=== PATIENT | female | born 1950 | race Caucasian/White ===

== ENCOUNTER 2019-11-18 14:08 | Emergency (ER) | payer OTHER ==
[2019-11-18] MEDS ORDERED: NA CHLORIDE 0.9% 500 ML ONE (15:16)
[2019-11-18 15:33] LABS: Absolute Lymphocytes (CBC) 1.5 K/uL (0.7-4.9); Basophils % 0.5 % (0-1.3); Hematocrit 42.7 % (36.0-45.0); Lymphocytes % 19.2 % (15.3-44.8); MPV 9.9 fL (7.6-11.3); RBC Red Blood Cell Count 4.65 M/uL (3.86-4.86)
[2019-11-18] MEDS ORDERED: INSULIN -REGULAR HUMAN 50 UNIT/0.5 ML ML ONE (15:48)
[2019-11-18 15:50] LABS: Potassium 3.9 mmol/L (3.5-5.1)
[2019-11-18 16:20] LABS: Urine Blood 1+ (NEG); Urine Glucose 1+ (NEG); Urine Protein 3+ (NEG); Urine Specific Gravity 1.025 (1.005-1.030)
--- NOTE | 2019-11-18 16:49 | ER ---
Nurse's Notes [facility] Name: Jane Bush Age: 69 yrs Sex: Female : 1950 Arrival Date: 11/18/2019 Time: 14:09 Bed 7 Private MD: Diagnosis: Hyperglycemia, unspecified;Dehydration;Urinary tract infection, site not specified Presentation: 11/17 14:18 Chief complaint: Patient states: Blood sugar reads hi today. + nausea. Not taking ll1 medications as prescribed. Coronavirus screen: Client denies travel out of the [place] in the last 14 days. At this time, the client does not indicate any symptoms associated with coronavirus-19. Ebola Screen: Patient denies travel to an Ebola-affected area in the 21 days before illness onset. Initial Sepsis Screen: Does the patient meet any 2 criteria? No. Patient's initial sepsis screen is negative. Does the patient have a suspected source of infection? No. Patient's initial sepsis screen is negative. Risk Assessment: Do you want to hurt yourself or someone else? Patient reports no desire to harm self or others. Onset of symptoms was November 18, 2019. 14:18 Method Of Arrival: Ambulatory ll1 14:18 Acuity: BARRY 3 ll1 Historical: - Allergies: 14:21 Codeine; ll1 14:21 Erythromycin; ll1 - PMHx: 14:21 Hypertension; Diabetes - IDDM; ll1 - PSHx: 14:21 Hysterectomy; ll1 - Immunization history:: Flu vaccine is not up to date. - Social history:: Smoking status: Patient denies any tobacco usage or history of. Screenin:25 Abuse screen: Denies threats or abuse. Nutritional screening: No deficits noted. em Tuberculosis screening: No symptoms or risk factors identified. Fall Risk None identified. Assessment: 14:25 General: Appears in no apparent distress. obese, well groomed, Behavior is calm, tw2 cooperative, appropriate for age. Pain: Denies pain. Neuro: Level of Consciousness is awake, alert, obeys commands, Oriented to person, place, time, situation. Cardiovascular: Heart tones S1 S2 Patient's skin is warm and dry. Respiratory: Airway is patent Respiratory effort is even, unlabored, Respiratory pattern is regular, symmetrical, Breath sounds are clear bilaterally. GI: Abdomen is round non-distended, obese, Bowel sounds present X 4 quads. Reports nausea. : No signs and/or symptoms were reported regarding the genitourinary system. EENT: No signs and/or symptoms were reported regarding the EENT system. Derm: No signs and/or symptoms reported regarding the dermatologic system. Musculoskeletal: Range of motion: intact in all extremities. 15:21 Reassessment: Patient appears in no apparent distress at this time. No changes from tw2 previously documented assessment. Patient and/or family updated on plan of care and expected duration. Pain level reassessed. Patient is alert, oriented x 3, equal unlabored respirations, skin warm/dry/pink. 16:15 Reassessment: Patient appears in no apparent distress at this time. No changes from tw2 previously documented assessment. Patient and/or family updated on plan of care and expected duration. Pain level reassessed. Patient is alert, oriented x 3, equal unlabored respirations, skin warm/dry/pink. 17:04 Reassessment: Patient appears in no apparent distress at this time. No changes from tw2 previously documented assessment. Patient and/or family updated on plan of care and expected duration. Pain level reassessed. Patient is alert, oriented x 3, equal unlabored respirations, skin warm/dry/pink. Vital Signs: 14:18 BP 163 / 106; Pulse 79; Resp 18; Temp 97.8; Pulse Ox 100% ; Weight 113.4 kg; Height 5 ll1 ft. (152.40 cm); Pain 0/10; 15:20 BP 129 / 81; Pulse 80; Resp 17; Pulse Ox 100% on R/A; tw2 16:15 BP 131 / 76; Pulse 69; Resp 17; Pulse Ox 99% on R/A; tw2 17:04 BP 138 / 76; Pulse 67; Resp 17; Pulse Ox 100% on R/A; tw2 14:18 Body Mass Index 48.82 (113.40 kg, 152.40 cm) ll1 ED Course: 14:09 Patient arrived in ED. ds1 14:20 Triage completed. ll1 14:22 Arm band placed on Patient placed in an exam room, on a stretcher. ll1 14:23 Kleber Santa, RN is Primary Nurse. em 14:25 Patient has correct armband on for positive identification. Bed in low position. Call em light in reach. Pulse ox on. NIBP on. 14:39 Jani Rios PA is PHCP. [facility] 14:39 Etienne Mosley MD is Attending Physician. [facility] 15:15 Inserted saline lock: 20 gauge in left antecubital area, using aseptic technique. Blood tw2 collected. 17:03 No provider procedures requiring assistance completed. IV discontinued, intact, tw2 bleeding controlled, No redness/swelling at site. Pressure dressing applied. Administered Medications: 15:20 Drug: NS 0.9% 500 ml Route: IV; Rate: bolus; Site: left antecubital; tw2 16:14 Follow up: Response: No adverse reaction; IV Status: Completed infusion; IV Intake: tw2 500ml 15:39 Drug: Insulin Regular Human 5 units {Co-Signature: mena (Kleber Santa RN).} Route: IVP; tw2 Site: left antecubital; 16:14 Follow up: Response: No adverse reaction; Blood sugar is lowered tw2 15:39 Drug: Insulin Regular Human 5 units {Co-Signature: mena (Kleber Santa RN).} Route: Sub-Q; tw2 Site: left upper arm; 16:14 Follow up: Response: No adverse reaction; Blood sugar is lowered tw2 Point of Care Testing: Blood Glucose: 14:27 Blood Glucose: 323 mg/dL; tw2 16:14 Blood Glucose: 215 mg/dL; tw2 14:27 by Gregorio Scott tw2 Ranges: Intake: 16:14 IV: 500ml; Total: 500ml. tw2 Outcome: 16:48 Discharge ordered by . [facility] 17:03 Discharged to home ambulatory. tw2 17:03 Condition: stable 17:03 Discharge instructions given to patient, Instructed on discharge instructions, follow up and referral plans. medication usage, Demonstrated understanding of instructions, follow-up care, medications, Prescriptions given X 1. 17:04 Patient left the ED. tw2 Addendum: 11/21/2019 11:56 Addendum: Culture Results: Positive urine culture. Prescription called-in to pharmacy a a[facility] of choice. to [facility] pharmacy in [place], [place], called-in Levaquin 500mg Daily x 5 days per ARTURO Cooper, spoke to pt's son over the phone and instructed to stop Cephalexin. Signatures: Jani Rios PA PA jmm Munoz, Edgar, RN RN em Kellogg, Margie ds1 Mary Foster, RN RN aa5 Rosy Claire RN RN tw2 Regine Mcnamara RN RN ll1 Kleber Santa RN em
--- NOTE | 2019-11-18 16:49 | EDPHYS ---
Physician Documentation [facility] Name: Jane Bush Age: 69 yrs Sex: Female : 1950 Arrival Date: 11/18/2019 Time: 14:09 Bed 7 Private MD: ED Physician Etienne Mosley HPI: 11/17 14:41 This 69 yrs old Female presents to ER via Ambulatory with complaints of High jmm Blood Pressure. 14:41 This is a 69 year old female with a history of HTN, DM, that presents to the ED due to m concerns from home nursing. Patient BGL was elevated along with blood pressure. Patient complains of fatigue but denies chest pain, headache, shortness of breath, abdominal pain or dysuria. . Onset: The symptoms/episode began/occurred today. Historical: - Allergies: 14:21 Codeine; ll1 14:21 Erythromycin; ll1 - PMHx: 14:21 Hypertension; Diabetes - IDDM; ll1 - PSHx: 14:21 Hysterectomy; ll1 - Immunization history:: Flu vaccine is not up to date. - Social history:: Smoking status: Patient denies any tobacco usage or history of. ROS: 14:41 Cardiovascular: Negative for chest pain, palpitations, and edema, Respiratory: Negative jmm for shortness of breath, cough, wheezing, and pleuritic chest pain, Abdomen/GI: Negative for abdominal pain, nausea, vomiting, diarrhea, and constipation. 14:41 Constitutional: Positive for fatigue, malaise. 14:41 Neuro: Positive for weakness. 14:41 All other systems are negative. Exam: 14:41 Constitutional: This is a well developed, well nourished patient who is awake, alert, jmm and in no acute distress. Head/Face: atraumatic. Eyes: EOMI, no conjunctival erythema appreciated ENT: Moist Mucus Membranes Neck: Trachea midline, Supple Chest/axilla: Normal chest wall appearance and motion. Cardiovascular: Regular rate and rhythm. No edema appreciated Respiratory: Normal respirations, no respiratory distress appreciated Abdomen/GI: Non distended, soft Back: Normal ROM Skin: General appearance color normal MS/ Extremity: Moves all extremities, no obvious deformities appreciated, no edema noted to the lower extremities Neuro: Awake and alert, normal gait Psych: Behavior is normal, Mood is normal, Patient is cooperative and pleasant Vital Signs: 14:18 BP 163 / 106; Pulse 79; Resp 18; Temp 97.8; Pulse Ox 100% ; Weight 113.4 kg; Height 5 ll1 ft. (152.40 cm); Pain 0/10; 15:20 BP 129 / 81; Pulse 80; Resp 17; Pulse Ox 100% on R/A; tw2 16:15 BP 131 / 76; Pulse 69; Resp 17; Pulse Ox 99% on R/A; tw2 17:04 BP 138 / 76; Pulse 67; Resp 17; Pulse Ox 100% on R/A; tw2 14:18 Body Mass Index 48.82 (113.40 kg, 152.40 cm) ll1 MDM: 14:41 Patient medically screened. sarahy 16:46 Data reviewed: vital signs, nurses notes. Counseling: I had a detailed discussion with camryn the patient and/or guardian regarding: the historical points, exam findings, and any diagnostic results supporting the discharge/admit diagnosis, lab results, the need for outpatient follow up, to return to the emergency department if symptoms worsen or persist or if there are any questions or concerns that arise at home. ED course: Patient is alert and non toxic in appearance in the ED. Patient is advised to follow up with pcp and otherwise given strict return precautions. Patient understood and agrees with the plan of care. . 11/17 14:39 Order name: Glucose, Ancillary Testing; Complete Time: 14:41 [facility] 11/17 14:55 Order name: CBC with Diff; Complete Time: 15:44 [facility] 11/17 14:55 Order name: BMP; Complete Time: 16:01 [facility] 11/17 15:24 Order name: Urine Microscopic Only; Complete Time: 16:51 [facility] 11/17 15:31 Order name: Urine Dipstick--Ancillary (enter results); Complete Time: 16:23 11/17 16:25 Order name: Glucose, Ancillary Testing; Complete Time: 16:26 [facility] 11/17 14:55 Order name: Urine Dipstick-Ancillary (obtain specimen); Complete Time: 15:24 [facility] 11/17 15:20 Order name: IV Start; Complete Time: 15:20 tw2 11/17 16:52 Order name: Urine Culture EDPA Administered Medications: 15:20 Drug: NS 0.9% 500 ml Route: IV; Rate: bolus; Site: left antecubital; tw2 16:14 Follow up: Response: No adverse reaction; IV Status: Completed infusion; IV Intake: tw2 500ml 15:39 Drug: Insulin Regular Human 5 units {Co-Signature: mena (Kleber Santa RN).} Route: IVP; tw2 Site: left antecubital; 16:14 Follow up: Response: No adverse reaction; Blood sugar is lowered tw2 15:39 Drug: Insulin Regular Human 5 units {Co-Signature: mena (Kleber Santa RN).} Route: Sub-Q; tw2 Site: left upper arm; 16:14 Follow up: Response: No adverse reaction; Blood sugar is lowered tw2 Point of Care Testing: Blood Glucose: 14:27 Blood Glucose: 323 mg/dL; tw2 16:14 Blood Glucose: 215 mg/dL; tw2 14:27 by UsariumGregorio tw2 Ranges: Critical Glucose Levels:Adult <50 mg/dl or >400 mg/dl <40 mg/dl or >180 mg/dl Disposition: 11/18/19 16:48 Discharged to Home. Impression: Hyperglycemia, unspecified, Dehydration, Urinary tract infection, site not specified. - Condition is Stable. - Discharge Instructions: Dehydration, Elderly, Hyperglycemia, Urinary Tract Infection, Adult. - Prescriptions for Cephalexin 500 mg Oral Capsule - take 1 capsule by ORAL route every 8 hours for 10 days; 30 capsule. - Medication Reconciliation Form, Thank You Letter, Antibiotic Education, Prescription Opioid Use form. - Follow up: Private Physician; When: 2 - 3 days; Reason: Recheck today's complaints, Continuance of care, Re-evaluation by your physician. Addendum: 11/19/2019 17:56 Co-signature as Attending Physician, Etienne Mosley MD I agree with the assessment and c pedraza plan of care. Signatures: Dispatcher [employer] Etienne Garay MD MD cha Mickail, Joel, PA PA jmm Wise, Tara, RN RN tw2 Regine Mcnamara RN RN 1 Kleber Santa RN em Corrections: (The following items were deleted from the chart) 11/17 17:04 16:48 11/18/2019 16:48 Discharged to Home. Impression: Hyperglycemia, unspecified; tw2 Dehydration; Urinary tract infection, site not specified. Condition is Stable. Forms are Medication Reconciliation Form, Thank You Letter, Antibiotic Education, Prescription Opioid Use. Follow up: Private Physician; When: 2 - 3 days; Reason: Recheck today's complaints, Continuance of care, Re-evaluation by your physician. camryn
[2019-11-18 16:50] LABS: Urine Bacteria >50 /HPF (<20); Urine Culture Reflex Order REFLEXED
[2019-11-18 17:41] VITALS: TEMP 97.8
[2019-11-18 17:45] VITALS: BP 138/76; O2SAT 100
== END 2019-11-18 17:04 | disposition home or self-care (01) ==
LOC: ER 14:08
DX: E11.65 Type 2 diabetes mellitus with hyperglycemia (principal); E86.0 Dehydration; N39.0 Urinary tract infection, site not specified; I10 Essential (primary) hypertension; Z88.3 Allergy status to other anti-infective agents; Z88.5 Allergy status to narcotic agent
CPT/HCPCS: 96361; 87088; 85025; 87086; 80048; 36415; 82947 ×2; 87077; 87186; 96372; 96374; 99284; J7040; 81003; 81015

== ENCOUNTER 2020-05-20 13:10 | Emergency (ER) | payer OTHER ==
[2020-05-20 13:29] LABS: Urine Blood 1+ (Negative); Urine Glucose 2+ (Negative); Urine Protein 3+ (Negative); Urine Specific Gravity 1.025 (1.005-1.030)
[2020-05-20] MEDS ORDERED: NA CHLORIDE 0.9% 250 ML ONE ×2 (13:41→15:12)
[2020-05-20 13:52] LABS: Absolute Lymphocytes (CBC) 0.4 K/uL (0.7-4.9); Basophils % 0.5 % (0-1.3); Hematocrit 41.3 % (36.0-45.0); Lymphocytes % 3.3 % (15.3-44.8); MPV 8.9 fL (7.6-11.3); RBC Red Blood Cell Count 4.47 M/uL (3.86-4.86)
[2020-05-20 13:56] LABS: Protime INR 0.95
[2020-05-20 13:57] LABS: Urine Amorphous Sediment 3+ /HPF (NONE SEEN); Urine Bacteria <20 /HPF (<20)
[2020-05-20 14:05] LABS: ALT/SGPT 13 U/L (12-78); AST/SGOT 13 U/L (15-37); Albumin 2.6 g/dL (3.4-5.0); Alkaline Phosphatase 93 U/L (45-117); BUN Blood Urea Nitrogen 29 mg/dL (7-18); Bicarbonate 25 mmol/L (21-32); Bilirubin Direct 0.2 mg/dL (0-0.2); Bilirubin Total 0.8 mg/dL (0.2-1.0); Lipase 83 U/L (73-393); Magnesium 2.1 mg/dL (1.8-2.4); NT PRO-BNP 2842 pg/mL (<125); Potassium 4.5 mmol/L (3.5-5.1); Protein, Total 6.8 g/dL (6.4-8.2); Sodium Level 134 mmol/L (136-145); Troponin (Emerg Dept Use Only) < 0.02 ng/mL (0.0-0.045)
[2020-05-20 14:11] LABS: Glucose Level 492 mg/dL (74-106)
[2020-05-20] MEDS ORDERED: INSULIN -REGULAR HUMAN 50 UNIT/0.5 ML ML ONE ×2 (14:29→14:32)
[2020-05-20 14:41] LABS: Platelet Estimate ADEQ; White Blood Cell Scan A (OK)
[2020-05-20 14:42] LABS: Blood Morphology Comment NOT SEEN (NOT SEEN)
--- NOTE | 2020-05-20 15:00 | RAD REPORT ---
EXAM DESCRIPTION: CT - Head Brain Wo Cont - 05/20/2020 2:45 pm CLINICAL HISTORY: hypertension Headache, drowsiness, hypertension COMPARISON: No comparisons TECHNIQUE: All CT scans are performed using dose optimization technique as appropriate and may inclu de automated exposure control or mA/KV adjustment according to patient size. FINDINGS: No intracranial hemorrhage, hydrocephalus or extra-axial fluid collection.Mild generalized brain atrophy is present with mild periventricular and deep white matter chronic microvascular ische sonny changes.No areas of brain edema or evidence of midline shift. The paranasal sinuses and mastoids are clear. The calvarium is intact. Mild vertebral atherosclerosis . IMPRESSION: No acute intracranial abnormality.
--- NOTE | 2020-05-20 15:53 | ER ---
Nurse's Notes [facility] Name: Jane Bush Age: 70 yrs Sex: Female : 1950 Arrival Date: 05/20/2020 Time: 13:10 Bed 8 Private MD: Diagnosis: Diabetes mellitus due to underlying condition with hyperglycemia Presentation: 05/20 13:13 Chief complaint: EMS states: Home BGL 400-500s for last several days, family reports hb recent insulin change. Coronavirus screen: At this time, the client does not indicate any symptoms associated with coronavirus-19. Ebola Screen: No symptoms or risks identified at this time. Initial Sepsis Screen: Does the patient meet any 2 criteria? No. Patient's initial sepsis screen is negative. Does the patient have a suspected source of infection? No. Patient's initial sepsis screen is negative. Risk Assessment: Do you want to hurt yourself or someone else? Patient reports no desire to harm self or others. Onset of symptoms was May 20, 2020. 13:13 Method Of Arrival: EMS: [facility] hb 13:13 Acuity: BARRY 3 hb 13:15 Care prior to arrival: Glucose check: 460. hb Historical: - Allergies: 13:15 Codeine; hb 13:15 Erythromycin; hb - PMHx: 13:15 Diabetes - IDDM; Hypertension; Dementia; hb - PSHx: 13:15 Hysterectomy; hb - Immunization history:: Adult Immunizations up to date. - Social history:: Smoking status: Patient denies any tobacco usage or history of. Screenin:15 Abuse screen: Denies threats or abuse. Denies injuries from another. Nutritional hb screening: No deficits noted. Tuberculosis screening: No symptoms or risk factors identified. Fall Risk None identified. Assessment: 13:15 General: Appears in no apparent distress. Behavior is calm, cooperative. Pain: Denies hb pain. Neuro: Level of Consciousness is awake, alert, obeys commands, Oriented to person, place, situation. Cardiovascular: Patient's skin is warm and dry. Rhythm is regular. Respiratory: Respiratory effort is even, unlabored, Respiratory pattern is regular, symmetrical. GI: No signs and/or symptoms were reported involving the gastrointestinal system. : No signs and/or symptoms were reported regarding the genitourinary system. EENT: No signs and/or symptoms were reported regarding the EENT system. Derm: Skin is pink, warm \T\ dry. Musculoskeletal: No signs and/or symptoms reported regarding the musculoskeletal system. 14:00 Reassessment: Patient appears in no apparent distress at this time. No changes from hb previously documented assessment. Patient and/or family updated on plan of care and expected duration. Pain level reassessed. 14:36 Reassessment: cleaned patient of urinary incontinence. Linens change. Call light within ss reach. 15:46 Reassessment: Patient appears in no apparent distress at this time. No changes from hb previously documented assessment. Patient and/or family updated on plan of care and expected duration. Pain level reassessed. 16:30 Reassessment: Patient appears in no apparent distress at this time. No changes from hb previously documented assessment. Patient and/or family updated on plan of care and expected duration. Pain level reassessed. Vital Signs: 13:13 BP 171 / 84; Pulse 70; Resp 16; Temp 98; Pulse Ox 97% on R/A; hb 13:59 BP 164 / 109; Pulse 88; Resp 15; Pulse Ox 98% on R/A; hb 15:00 BP 147 / 91; Pulse 82; Resp 17; Pulse Ox 96% on R/A; hb 15:45 BP 141 / 96; Pulse 71; Resp 17; Pulse Ox 96% on R/A; hb ED Course: 13:10 Patient arrived in ED. ds1 13:13 Flavia Clark, JENNIFER is Primary Nurse. hb 13:14 Triage completed. hb 13:15 Etienne Wilson PA is PHCP. cp 13:15 Willam Cardoso MD is Attending Physician. cp 13:15 Arm band placed on. hb 13:15 Patient has correct armband on for positive identification. Bed in low position. Call hb light in reach. 13:50 Missed attempt(s): 22 gauge in right antecubital area. Bleeding controlled, band aid hb applied, catheter tip intact. 13:53 Inserted saline lock: 22 gauge in left antecubital area, using aseptic technique. Blood hb collected. 14:02 Basic Metabolic Panel Sent. hb 14:45 CT Head Brain wo Cont In Process Unspecified. EDMS 16:41 No provider procedures requiring assistance completed. IV discontinued, intact, hb bleeding controlled, No redness/swelling at site. Administered Medications: 13:31 Drug: NS 0.9% 250 ml Route: IV; Rate: bolus; Site: right antecubital; hb 14:20 Follow up: IV Status: Completed infusion; IV Intake: 500ml hb 15:47 Follow up: Response: No adverse reaction hb 14:25 Drug: Insulin Regular Human 10 units {Co-Signature: ss (Cindy Hamlin RN).} Route: IVP; hb Site: left antecubital; 15:46 Follow up: Response: No adverse reaction hb 14:30 Drug: NS 0.9% 250 ml Route: IV; Rate: bolus; Site: left antecubital; hb 15:10 Follow up: IV Status: Completed infusion; IV Intake: 500ml hb 15:15 Follow up: Response: No adverse reaction hb Intake: 14:20 IV: 500ml; Total: 500ml. hb 15:10 IV: 500ml; Total: 1000ml. hb Outcome: 15:51 Discharge ordered by MD. cp 16:41 Discharged to home via wheelchair, with family. hb 16:41 Condition: stable 16:41 Discharge instructions given to patient, family, Instructed on discharge instructions, follow up and referral plans. medication usage, Demonstrated understanding of instructions, follow-up care, medications. 16:41 Patient left the ED. hb Signatures: Dispatcher [employer] EDKY KelloggMargie crawford ds1 Cindy Hamlin RN RN ss Etienne Wilson PA PA cp Baxter, Heather, RN RN Cindy schultz
--- NOTE | 2020-05-20 15:53 | EDPHYS ---
Physician Documentation [facility] Name: Jane Bush Age: 70 yrs Sex: Female : 1950 Arrival Date: 05/20/2020 Time: 13:10 Bed 8 Private MD: ED Physician Willam Cardoso HPI: 05/20 13:25 This 70 yrs old Female presents to ER via EMS with complaints of High Blood cp Sugar. 13:25 The patient or guardian reports hyperglycemia that was potentially precipitated by cp change of medications. 13:25 Onset: The symptoms/episode began/occurred over past several days. cp 13:25 Associated signs and symptoms: Pertinent negatives: diarrhea, vomiting, altered mental cp status, chest pain, abdominal pain. Current symptoms: In the emergency department the patient's symptoms are unchanged from the initial presentation. 15:30 Daughter reports patient was recently taken off insulin and placed on oral medication cp for diabetes. Historical: - Allergies: 13:15 Codeine; hb 13:15 Erythromycin; hb - PMHx: 13:15 Diabetes - IDDM; Hypertension; Dementia; hb - PSHx: 13:15 Hysterectomy; hb - Immunization history:: Adult Immunizations up to date. - Social history:: Smoking status: Patient denies any tobacco usage or history of. ROS: 13:30 Eyes: Negative for injury, pain, redness, and discharge. cp 13:30 Constitutional: Negative for fever. 13:30 Cardiovascular: Negative for chest pain. 13:30 Respiratory: Negative for cough, wheezing. 13:30 Abdomen/GI: Negative for abdominal pain, vomiting, diarrhea, constipation. 13:30 Neuro: Negative for altered mental status, headache, syncope. 13:30 All other systems are negative. Exam: 13:35 Constitutional: The patient appears in no acute distress, alert, awake, cp non-diaphoretic, non-toxic, well developed, well nourished. 13:35 Head/Face: Normocephalic, atraumatic. cp 13:35 Eyes: Periorbital structures: appear normal, Pupils: equal, round, and reactive to light and accomodation, Extraocular movements: intact throughout, Conjunctiva: normal, no exudate, no injection, Sclera: no appreciated abnormality, Lids and lashes: appear normal, bilaterally. 13:35 ENT: External ear(s): are unremarkable, Nose: is normal, Mouth: Lips: dry, Oral mucosa: moist, Posterior pharynx: Airway: no evidence of obstruction, patent. 13:35 Neck: ROM/movement: is normal, is supple, without pain, no range of motions limitations, no meningismus. 13:35 Chest/axilla: Inspection: normal, Palpation: is normal, no crepitus, no tenderness. 13:35 Cardiovascular: Rate: normal, Rhythm: regular, Edema: ankle edema, that is very mild, JVD: is not appreciated. 13:35 Respiratory: the patient does not display signs of respiratory distress, Respirations: normal, no use of accessory muscles, no retractions, labored breathing, is not present, Breath sounds: are clear throughout, no decreased breath sounds, no stridor, no wheezing. 13:35 Abdomen/GI: Inspection: abdomen appears normal, Palpation: abdomen is soft and non-tender, in all quadrants. 13:35 Skin: cellulitis, is not appreciated, no rash present. 13:35 Neuro: Orientation: no acute changes, per EMS, to person, Mentation: no acute changes, per EMS, able to follow commands. 14:20 ECG was reviewed by the Attending Physician. Vital Signs: 13:13 BP 171 / 84; Pulse 70; Resp 16; Temp 98; Pulse Ox 97% on R/A; hb 13:59 BP 164 / 109; Pulse 88; Resp 15; Pulse Ox 98% on R/A; hb 15:00 BP 147 / 91; Pulse 82; Resp 17; Pulse Ox 96% on R/A; hb 15:45 BP 141 / 96; Pulse 71; Resp 17; Pulse Ox 96% on R/A; hb MDM: 13:23 Patient medically screened. cp 14:00 Differential diagnosis: DKA, UTI, acute NE, pancreatitis. 15:50 Data reviewed: vital signs, nurses notes, lab test result(s), EKG, radiologic studies, cp CT scan, I have discussed the patient's presentation/case with the attending Emergency Department Physician; and as a result, I will discharge patient. 15:50 Test interpretation: by ED physician or midlevel provider: ECG. 15:50 Counseling: I had a detailed discussion with the patient and/or guardian regarding: the cp historical points, exam findings, and any diagnostic results supporting the discharge/admit diagnosis, lab results, radiology results, the need for outpatient follow up, for definitive care, an graphic arts instructor, to return to the emergency department if symptoms worsen or persist or if there are any questions or concerns that arise at home. Response to treatment: the patient's symptoms have markedly improved after treatment, and as a result, I will discharge patient. 05/20 13:16 Order name: Basic Metabolic Panel 05/20 13:16 Order name: CBC with Diff; Complete Time: 14:58 cp 05/20 14:21 Interpretation: Normal except: WBC 13.00; JUHI% 91.9; LYM% 3.3; NEUT A 11.9; LYMA 0.4. 05/20 13:16 Order name: LFT's; Complete Time: 14:15 05/20 14:15 Interpretation: Normal except: AST 13; ALB 2.6; GLOB 4.2; A/G 0.6. 05/20 13:16 Order name: Magnesium; Complete Time: 14:15 05/20 14:59 Interpretation: MG 2.1; Reviewed. cp 05/20 13:16 Order name: NT PRO-BNP; Complete Time: 14:15 05/20 13:16 Order name: PT-INR; Complete Time: 13:58 05/20 13:16 Order name: Troponin (emerg Dept Use Only); Complete Time: 14:15 05/20 14:24 Interpretation: Abnormal: TROPED < 0.02. 05/20 13:16 Order name: Urine Microscopic Only; Complete Time: 13:58 05/20 13:58 Interpretation: Normal except: URBC 5-10; AMORPH 3+. cp 05/20 13:17 Order name: Basic Metabolic Panel; Complete Time: 14:15 EDMS 05/20 14:21 Interpretation: Normal except: NA 134; GLUC 492; BUN 29; CRE 2.22; GFR 22. cp 05/20 13:18 Order name: Lipase; Complete Time: 14:15 cp 05/20 13:29 Order name: Urine Dipstick-Ancillary; Complete Time: 13:57 EDMS 05/20 13:57 Interpretation: Normal except: UGLUC 2+; UBLD 1+; UPROT 3+. cp 05/20 13:54 Order name: CBC Smear Scan; Complete Time: 14:58 EDOH 05/20 14:23 Order name: CT Head Brain wo Cont; Complete Time: 15:05 05/20 15:06 Interpretation: Report reviewed. 05/20 15:52 Order name: Glucose, Ancillary Testing EDOH 05/20 13:16 Order name: EKG; Complete Time: 13:17 05/20 13:16 Order name: Cardiac monitoring; Complete Time: 13:21 05/20 13:16 Order name: EKG - Nurse/Tech; Complete Time: 14:02 05/20 13:16 Order name: IV Saline Lock; Complete Time: 13:31 05/20 13:16 Order name: Labs collected and sent; Complete Time: 13:31 05/20 13:16 Order name: O2 Per Protocol; Complete Time: 13:21 05/20 13:16 Order name: O2 Sat Monitoring; Complete Time: 13:21 05/20 13:16 Order name: Cath; Complete Time: 13:31 05/20 13:16 Order name: Urine Dipstick-Ancillary (obtain specimen); Complete Time: 13:31 05/20 13:16 Order name: Accucheck Blood Glucose; Complete Time: 14:01 05/20 15:06 Order name: Accucheck Blood Glucose; Complete Time: 15:46 cp EC:20 Rate is 79 beats/min. Rhythm is regular. QRS interval is normal. QT interval is normal. cp T waves are Inverted in leads aVL, aVR. Interpreted by me. Reviewed by me. Administered Medications: 13:31 Drug: NS 0.9% 250 ml Route: IV; Rate: bolus; Site: right antecubital; hb 14:20 Follow up: IV Status: Completed infusion; IV Intake: 500ml hb 15:47 Follow up: Response: No adverse reaction hb 14:25 Drug: Insulin Regular Human 10 units {Co-Signature: ss (Cindy Hamlin RN).} Route: IVP; hb Site: left antecubital; 15:46 Follow up: Response: No adverse reaction hb 14:30 Drug: NS 0.9% 250 ml Route: IV; Rate: bolus; Site: left antecubital; hb 15:10 Follow up: IV Status: Completed infusion; IV Intake: 500ml hb 15:15 Follow up: Response: No adverse reaction hb Disposition: 17:31 Co-signature as Attending Physician, Willam Cardoso MD. rn Disposition: 05/20/20 15:51 Discharged to Home. Impression: Diabetes mellitus due to underlying condition with hyperglycemia. - Condition is Stable. - Discharge Instructions: Blood Glucose Monitoring, Adult, Diabetes Mellitus and Food. - Medication Reconciliation Form, Thank You Letter, Antibiotic Education, Prescription Opioid Use form. - Follow up: Private Physician; When: 1 - 2 days; Reason: Recheck today's complaints. Signatures: Dispatcher [employer] EDMS Willam Cardoso MD MD rn Etienne Wilson PA PA cp Baxter, Heather, RN RN may Hamlin RN ss Corrections: (The following items were deleted from the chart) 14:21 13:57 Normal except: WBC 13.00; JUHI% 91.9; LYM% 3.3; NEUT A 11.9. cp cp 16:41 15:51 05/20/2020 15:51 Discharged to Home. Impression: Diabetes mellitus due to hb underlying condition with hyperglycemia. Condition is Stable. Forms are Medication Reconciliation Form, Thank You Letter, Antibiotic Education, Prescription Opioid Use. Follow up: Private Physician; When: 1 - 2 days; Reason: Recheck today's complaints. cp 18:57 17:30 Constitutional: Negative for fever, cp cp 18:57 17:30 Cardiovascular: Negative for chest pain, cp cp 18:57 17:30 Abdomen/GI: Negative for abdominal pain, vomiting, diarrhea, constipation, cp cp 18:57 17:30 Skin: Negative for rash, cp cp 18:57 17:30 Neuro: Negative for altered mental status, headache, cp cp 18:57 17:30 All other systems are negative, cp cp 05/21 14:46 05/20 15:20 Daughter reports patient was recently taken off insulin and placed on oral cp medication for diabetes. cp
[2020-05-20 19:10] VITALS: TEMP 98
[2020-05-20 19:17] VITALS: O2SAT 96
[2020-05-20 19:33] VITALS: BP 141/96
--- NOTE | 2020-05-21 07:15 | EKG ---
Test Date: 2020-05-20 Test Time: 14:09:17 [employer]: BEBETO MEASUREMENT RESULTS: Intervals: Rate: 79 NE: 296 QRSD: 76 QT: 406 QTc: 465 [place]: P: NE: 296 QRS: -41 T: 70 INTERPRETIVE STATEMENTS: Atrial-paced rhythm with prolonged AV conduction Left axis deviation Minimal voltage criteria for LVH, may be normal variant Anterior infarct, age undetermined Abnormal ECG No previous ECG available for comparison Electronically Signed On 05-21-20 07:14:04 CDT by Harshal Thao
== END 2020-05-20 16:41 | disposition home or self-care (01) ==
LOC: ER 13:10
DX: E11.649 Type 2 diabetes mellitus with hypoglycemia without coma (principal); I10 Essential (primary) hypertension; F03.90 Unspecified dementia, unspecified severity, without behavioral disturbance, psychotic disturbance, mood disturbance, and anxiety; Z88.3 Allergy status to other anti-infective agents; Z88.5 Allergy status to narcotic agent
CPT/HCPCS: 93005; 85025; 80048; 36415; 83735; 85610; 82947; 80076; 84484; 83690; 83880; 70450; 99284; J7050 ×2; 81003; 81015

== ENCOUNTER 2020-11-19 12:50 | Emergency (ER) | payer OTHER ==
[2020-11-19] MEDS ORDERED: ONDANSETRON 4 MG/2 ML VIAL ONE ×2 (13:48→16:03)
[2020-11-19] MEDS ORDERED: MORPHINE 4 MG/ML SYR ONE ×2 (13:48→16:03)
[2020-11-19 13:56] LABS: Basophils % 0.4 % (0-1.3); Hematocrit 41.8 % (36.0-45.0); Lymphocytes % 8.7 % (15.3-44.8); MPV 8.1 fL (7.6-11.3); RBC Red Blood Cell Count 4.56 M/uL (3.86-4.86)
--- NOTE | 2020-11-19 13:56 | RAD REPORT ---
EXAM DESCRIPTION: CT - Head C Spine Mpr Wo Con - 11/19/2020 1:37 pm CLINICAL HISTORY: Head and neck injury status post fall. Head and neck pain COMPARISON: None. TECHNIQUE: Computed axial tomography of the head and cervical spine was obtained. Sagittal and coronal reconstruction was performed. All CT scans are performed using dose optimization technique as appropriate and may include automated exposure control or mA/KV adjustment according to patient size. FINDINGS: An intracranial bleed is not seen. Mild to moderate low-density areas within periventricular deep and subcortical white matter probably ischemic changes secondary to small vessel disease. 10 millimeter calcification right scalp. This is nonspecific but probably benign The ventricles are normal in caliber. An extra-axial fluid collection is not noted.Fluid within the v isualized sinuses and mastoids is not seen A cervical fracture is not visualized. No dislocation is noted. Spondylosis involves the cervical spi ne. Slight anterior subluxation C3 on C4 and C4 on C5. IMPRESSION: No acute intracranial abnormality is seen. A cervical fracture is not visualized. If the patient continues to have symptoms to suggest intracra nial /spinal cord/ligamentous pathology then MRI would be recommended
[2020-11-19 14:02] LABS: Albumin 2.9 g/dL (3.4-5.0); Bilirubin Total 0.5 mg/dL (0.2-1.0); Potassium 4.4 mmol/L (3.5-5.1); Protein, Total 6.9 g/dL (6.4-8.2)
--- NOTE | 2020-11-19 14:06 | RAD REPORT ---
EXAM DESCRIPTION: CTSpine Lumbar Wo Con11/19/2020 1:37 pm CLINICAL HISTORY: Back injury with back pain status post fall COMPARISON: None TECHNIQUE: Computed axial tomography lumbar spine was obtained with coronal and sagittal reconstruct ion. All CT scans are performed using dose optimization technique as appropriate and may include automated exposure control or mA/KV adjustment according to patient size. FINDINGS: An acute fracture involves the inferior vertebral endplate of L4. Minimal compression of t he vertebral body. No retropulsion of bone into the spinal canal. An old moderate compression fracture involves the L3 vertebral body. Retropulsion of bone results in mild narrowing of the spinal canal. Sclerotic foci are present within the L2 vertebral body and S1 segment of the sacrum. No dislocation. Slight anterior subluxation L4 on L5 Right posterior-lateral disc herniation suspected L5-S1 IMPRESSION: Acute fracture involves the inferior vertebral endplate of L4. Minimal compression of th e vertebral body. No retropulsion of bone into the spinal canal Several bony sclerotic foci are nonspecific. These could represent bone islands or metastases. A bone scan could be obtained for further evaluation
--- NOTE | 2020-11-19 14:12 | RAD REPORT ---
EXAM DESCRIPTION: CT - Pelvis Wo Cont - 11/19/2020 1:37 pm CLINICAL HISTORY: Pelvic pain status post fall COMPARISON: None. TECHNIQUE: Computed axial tomography of the pelvis was obtained. Coronal and sagittal reconstruction performed All CT scans are performed using dose optimization technique as appropriate and may include automated exposure control or mA/KV adjustment according to patient size. FINDINGS: No fracture or dislocation is seen. Mild osteoarthritis involves the hips Muscles are normal size and density. A subcutaneous contusion is not noted IMPRESSION: No fracture seen
--- NOTE | 2020-11-19 14:25 | RAD REPORT ---
EXAM DESCRIPTION: RAD - Femur Right - 11/19/2020 2:19 pm CLINICAL HISTORY: Right hip pain, fall COMPARISON: No comparisons FINDINGS: Multiple AP and cross-table lateral views of the right femur were obtained. Cross-table vi ews are limited in detail. No fracture, dislocation or pathologic bone process identifiable. Hip joint degenerative changes are present. Multiple crossing skin fold artifacts are present. An acute or worrisome bone finding is not identifiable. Patient has moderate severity degenerative change at the knee joint. No joint effusion at the knee identified. No air or foreign body in the soft tissues. IMPRESSION: Hip joint and knee joint degenerative changes are present without acute right femur find ing identified.
[2020-11-19] MEDS ORDERED: KETOROLAC 30 MG/ML INJ ONE (16:03)
--- NOTE | 2020-11-19 16:13 | ER ---
Nurse's Notes [facility] Name: Jane Bush Age: 70 yrs Sex: Female : 1950 Arrival Date: 11/19/2020 Time: 13:00 Bed 8 Private MD: Diagnosis: Fracture of fourth lumbar vertebra-Inferior vertebral endplate of L4 and mild compression fracture Presentation: 11/19 13:00 Chief complaint: EMS states: MECHANICAL FALL AT HOME THIS AM, NO LOC. Coronavirus bp screen: At this time, the client does not indicate any symptoms associated with coronavirus-19. Ebola Screen: No symptoms or risks identified at this time. Initial Sepsis Screen: Does the patient meet any 2 criteria? No. Patient's initial sepsis screen is negative. Does the patient have a suspected source of infection? No. Patient's initial sepsis screen is negative. Risk Assessment: Do you want to hurt yourself or someone else? Patient reports no desire to harm self or others. Onset of symptoms was November 19, 2020 at 12:00. Care prior to arrival: Placed on backboard. 13:00 Method Of Arrival: EMS: [facility] bp 13:00 Acuity: BARRY 3 bp Triage Assessment: 13:00 General: Appears distressed, uncomfortable, obese, Behavior is cooperative, appropriate bp for age, anxious. Pain: Complains of pain in left hip. EENT: No deficits noted. Neuro: No deficits noted. Cardiovascular: No deficits noted. Respiratory: No deficits noted. GI: No signs and/or symptoms were reported involving the gastrointestinal system. : No signs and/or symptoms were reported regarding the genitourinary system. Derm: No deficits noted. Musculoskeletal: Circulation, motion, and sensation intact. Range of motion: intact in all extremities. Historical: - Allergies: 13:26 Codeine; jl7 13:26 Erythromycin; jl7 - PMHx: 13:26 Dementia; Diabetes - IDDM; Hypertension; jl7 - Immunization history:: Adult Immunizations unknown. - Social history:: Smoking status: Patient denies any tobacco usage or history of. Screenin:00 Abuse screen: Denies threats or abuse. Denies injuries from another. Nutritional bp screening: No deficits noted. Tuberculosis screening: No symptoms or risk factors identified. Fall Risk None identified. Assessment: 13:00 General: SEE TRIAGE NOTE. bp 14:00 Reassessment: Patient appears in no apparent distress at this time. No changes from jl7 previously documented assessment. Patient and/or family updated on plan of care and expected duration. Pain level reassessed. Patient is alert, oriented x 3, equal unlabored respirations, skin warm/dry/pink. 15:15 Reassessment: ANA Arango at bedside discussing results and POC. jl7 Vital Signs: 13:00 BP 152 / 108; Pulse 66; Resp 18; Temp 98.3; Pulse Ox 98% ; bp 15:04 BP 204 / 107; Pulse 86; Resp 15; Pulse Ox 96% ; jl7 15:30 BP 215 / 101; Pulse 86; Resp 15; Pulse Ox 98% ; jl7 16:00 BP 182 / 98; Pulse 84; Resp 13; Pulse Ox 98% ; jl7 ED Course: 13:00 Patient arrived in ED. ds1 13:00 Arm band placed on. bp 13:00 Patient has correct armband on for positive identification. Bed in low position. Call bp light in reach. Side rails up X2. 13:00 shelter monitor on. Pulse ox on. NIBP on. jl7 13:00 Maintain EMS IV. Dressing intact. Good blood return noted. Site clean \T\ dry. Gauge \T\ bp site: 20 GAUGE LEFT AC. 13:06 Triage completed. bp 13:06 Nba Hawkins NP is PHCP. pm1 13:06 Selvin Haque MD is Attending Physician. pm1 13:24 Génesis Meyer RN is Primary Nurse. jl7 13:27 Cleaned of incontinence. Linen changed. jl7 13:30 Initial lab(s) drawn, by ED staff, sent to lab. jl7 13:37 CT Head C Spine In Process Unspecified. EDMS 13:37 CT Pelvis wo Cont In Process Unspecified. EDMS 13:37 CT Lumbar Spine Wo Con In Process Unspecified. EDMS 14:18 Femur Right XRAY In Process Unspecified. EDMS 16:32 No provider procedures requiring assistance completed. IV discontinued, intact, jl7 bleeding controlled, No redness/swelling at site. Pressure dressing applied. Administered Medications: 13:25 Drug: morphine 4 mg Route: IVP; Site: left antecubital; bp 13:55 Follow up: Response: No adverse reaction; Pain is decreased jl7 13:25 Drug: Zofran (Ondansetron) 4 mg Route: IVP; Site: left antecubital; bp 15:49 Follow up: Response: No adverse reaction jl7 15:44 Drug: Ketorolac 15 mg Route: IVP; Site: left antecubital; jl7 16:00 Follow up: Response: No adverse reaction; Pain is decreased jl7 15:46 Drug: Zofran (Ondansetron) 4 mg Route: IVP; Site: left antecubital; jl7 16:33 Follow up: Response: No adverse reaction jl7 15:48 Drug: morphine 4 mg Route: IVP; Site: left antecubital; jl7 16:00 Follow up: Response: No adverse reaction; Pain is decreased jl7 Outcome: 16:13 Discharge ordered by . pm1 16:32 Discharged to home ambulatory. jl7 16:32 Condition: stable 16:32 Discharge instructions given to patient, Instructed on discharge instructions, follow up and referral plans. medication usage, Demonstrated understanding of instructions, follow-up care, medications, Prescriptions given X 2. 16:33 Patient left the ED. jl7 Signatures: Dispatcher [employer] EDAR Margie Kellogg ds1 Nba Hawkins NP COPIER REPAIR TECHNICIAN pm1 Génesis Meyer RN RN jl7 Jonas Ricardo RN RN bp
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
[2020-11-19 16:43] VITALS: TEMP 98.3
[2020-11-19 16:46] VITALS: O2SAT 98
[2020-11-19 16:47] VITALS: BP 182/98
== END 2020-11-19 16:33 | disposition home or self-care (01) ==
LOC: ER 12:50
DX: S32.049A Unspecified fracture of fourth lumbar vertebra, initial encounter for closed fracture (principal); W19.XXXA Unspecified fall, initial encounter; I10 Essential (primary) hypertension; E11.9 Type 2 diabetes mellitus without complications; F03.90 Unspecified dementia, unspecified severity, without behavioral disturbance, psychotic disturbance, mood disturbance, and anxiety; Z88.3 Allergy status to other anti-infective agents; Z88.5 Allergy status to narcotic agent
CPT/HCPCS: 85025; 36415; 80053; 72131; 70450; 72125; 72192; 73552; 96375; 96374; 99285; J2405 ×2